=== PATIENT | female | born 1980 | race Caucasian/White ===

== ENCOUNTER → 2017-02-25 | Emergency (ER) | payer MEDICAID ==
[2017-02-25 12:37] VITALS: BP 125/83; PULSE 66; RESP 16; TEMP 99.3; O2SAT 99
--- NOTE | 2017-02-25 12:57 | EDPHY ---
H & P Stated Complaint: ST,STARTED 2 DAYS AGO, SPIKE EAR PAIN Time Seen by Provider: 02/25/17 12:46 HPI/ROS: CHIEF COMPLAINT:Sore throat and ear pain HISTORY OF PRESENT ILLNESS: this is a healthy immunocompetent 36-year-old who presents with 2 days of sore throat. She also notices that her tongue on the top of her mouth are sensitive. She has been able to swallow although it is painful for her to do so. Last night she developed bilateral ear pain. She has had a mild headache on and off. No fever. She has not had cough and denies chest pain or shortness of breath. No vomiting, diarrhea, abdominal pain or dysuria. REVIEW OF SYSTEMS: A ten point review of systems was performed and is negative with the exception of the items mentioned in the HPI. Source: Patient Exam Limitations: No limitations - Personal History LMP (Females 10-55): 8-14 Days Ago Current Tetanus Diphtheria and Acellular Pertussis (TDAP): Yes - Medical/Surgical History Hx Asthma: No Hx Chronic Respiratory Disease: No Hx Diabetes: No Hx Cardiac Disease: No Hx Renal Disease: No Hx Cirrhosis: No Hx Alcoholism: No Hx HIV/AIDS: No Hx Splenectomy or Spleen Trauma: No Other PMH: NO MED/SURG HX - Social History Smoking Status: Current every day smoker Alcohol Use: Occasionally Additional Social History: She works at [employer]. - Physical Exam Exam: General Appearance: Alert. Vital signs reviewed. Blood pressure 125/83. Eyes: Pupils equal and round, no conjunctival injection, no discharge. Anicteric. ENT, Mouth: Mucous membranes are moist, Mild posterior oropharyngeal erythema without swelling or exudates. External auditory canals and tympanic membranes are normal bilaterally. Neck: No lymphadenopathy, supple. Respiratory: Lungs are clear to auscultation; no wheezes, rales, or rhonchi. Cardiovascular: Regular rate and rhythm; no murmur, rub, or gallop. Gastrointestinal: Abdomen is soft and nontender, no masses or organomegaly, bowel sounds normal. Skin: Warm and dry, no rashes on exposed skin, normal color. Neurological: Alert and oriented. Moving all four extremities easily and equally. Psychiatric: Normal affect. Constitutional: Initial Vital Signs Temperature (C) 37.4 C 02/25/17 12:33 Heart Rate 66 02/25/17 12:33 Respiratory Rate 16 02/25/17 12:33 Blood Pressure 125/83 H 02/25/17 12:33 O2 Sat (%) 99 02/25/17 12:33 O2 Delivery Mode Room Air Allergies/Adverse Reactions: No Known Allergies Allergy (Verified 02/25/17 12:32) Home Medications: Medication Instructions Recorded Xanax PRN 11/26/12 Medical Decision Making ED Course/Re-evaluation: Rapid strep test is negative. I suspect a viral pharyngitis. I am recommending symptomatic treatment. She appears well hydrated. Differential Diagnosis: I considered a differential diagnosis that includes but is not limited to viral or strep pharyngitis, retropharyngeal abscess, epiglottitis, uvulitis, upper respiratory infection, otitis media, and otitis externa. - Data Points Laboratory Results: 02/25/17 02/25/17 Unknown 12:40 Group A Strep Screen NEGATIVE (NEGATIVE) Group A Strep DNA Pending Departure - Departure Disposition: Home, Routine, Self-Care Clinical Impression: Acute pharyngitis Qualifiers: Pharyngitis/tonsillitis etiology: other specified organisms Qualified Code(s): J02.8 - Acute pharyngitis due to other specified organisms Condition: Good Instructions: Pharyngitis (ED) Additional Instructions: Your strep throat culture is negative. This is most likely an illness that is caused by a virus, meaning that antibiotics will not help. I recommend Tylenol and/ or ibuprofen for pain. You can take Tylenol 650 mg every 4 hours as needed for pain. You can take ibuprofen along with Tylenol. The ibuprofen doses 400 mg every 6 hours and should be taken with food. Drink lots of fluids. Follow up with Your primary care doctor if you are not getting better. If you are worse --unable to swallow, short of breath, any new or concerning symptoms, return for another evaluation. Referrals: Sara Page MD [Primary Care Provider] - As per Instructions
== END | disposition home or self-care (01) ==
LOC: CED 12:28
DX: J20.8 Acute bronchitis due to other specified organisms (principal); F17.200 Nicotine dependence, unspecified, uncomplicated
CPT/HCPCS: 87880-PO